=== PATIENT | male | born 1950 | race Caucasian/White ===

== ENCOUNTER 2016-06-19 15:50 | Inpatient (IN) | payer MEDICARE ==
[~2016-06-19] VITALS: Ht 175.3 cm; Wt 102.0 kg
[~2016-06-19 15:50] MED LIST: AMOX/K CLAV875 M1 PO; ASPIRIN81 MG PO; CEPHALEXIN500 MG OR; CIPRO500 MG OR; COUMADIN2.5 MG; COUMADIN2.5 MG PO; COUMADIN5 MG; COUMADIN5 MG OR; COUMADIN7.5 MG OR; DILTIAZEM240 MG PO; DOXYCYC MONO100 M2 PO; FLEXERIL OR; HEPARIN10 UNITS/M IV; INVANZ1 GM IV; LEVAQUIN500 MG OR; METOPROL TAR25 MG PO; NO HOME MEDS; NO MEDS; NORCO1 TA1 PO; NORMAL SALIN0.91 IV; PERCOCET1 TA1 OR; PYRIDIUM100 MG OR; PYRIDIUM200 MG OR; TRAMADOL HCL50 MG OR; ULTRAM50 M1 OR; ULTRAM50 M1 PO; ZOFRAN4 MG OR
--- NOTE | 2016-06-19 16:08 | NUR ---
PT TO WAITING ROOM TO AWAIT AVAILABLE TX ROOM
--- NOTE | 2016-06-19 17:00 | NUR ---
PT TO ROOM 5. TEMP RECHECK 100.8. PT REPORTS FEVER AND BODY ACHES X 4 HOURS. TYLENOL GIVEN IN TRIAGE. PT LS CLEAR, DENIES AND OTHER PAIN OR SYMPTOMS. INFORMED OF PENDING LAB RESULTS AND BUSY ED. PT AND VERBLAIZED UNDERSTANDING WITH NO QUESTIONS VOICED.
[2016-06-19 17:03] LABS: INFLUENZA A NONE DETECTED (NONE DETECT); INFLUENZA B NONE DETECTED (NONE DETECT)
--- NOTE | 2016-06-19 17:33 | NUR ---
PT GIVEN A CATH KIT TO STRAIGHT CATH SELF FOR URINE SPECIMEN.
--- NOTE | 2016-06-19 17:56 | NUR ---
URINE SAMPLE RECIEVED FROM PT. URINE DARK YELLOW AND CLOUDY. PT REPORTS HE HAS A HX OF E COLI AND IS NORMALLY TREATED WITH CIPRO. NOTIFIED.
[2016-06-19 18:16] LABS: URINE BILIRUBIN - DIPSTICK NEGATIVE (NEGATIVE); URINE BLOOD DIPSTICK MODERATE (NEGATIVE); URINE COLOR YELLOW; URINE GLUCOSE - DIPSTICK NEGATIVE (NEGATIVE); URINE KETONE NEGATIVE (NEGATIVE); URINE PH 5.5 (4.5-8.0); URINE PROTEIN - DIPSTICK NEGATIVE (NEG-TRACE); URINE SPECIFIC GRAVITY 1.015; URINE UROBILINOGEN - DIPSTICK 0.2 E.U./dL (0.2)
[2016-06-19 18:23] LABS: URINE CLARITY CLOUDY; URINE LEUK ESTERASE LARGE (NEGATIVE); URINE NITRITE - DIPSTICK POSITIVE (Negative)
[2016-06-19 18:30] LABS: URINE BACTERIA MANY hpf; URINE RBC TNTC RBC/hpf (0-5); URINE SQUAMOUS EPITHELIAL CELL FEW EPI/hpf (0-FEW); URINE WBC TNTC WBC/hpf (0-5)
--- NOTE | 2016-06-19 18:45 | NUR ---
TEMP RECHECK 99.9
--- NOTE | 2016-06-19 19:00 | NUR ---
IV ROCEPHIN RUNNING AT 100 MLS/HR WITH NO DIFFICULTY. PT HAS NO NEEDS AT THIS TIME WILL CONTINUE TO MONITOR. VSS.
[2016-06-19 19:18] LABS: HEMATOCRIT 47.3 % (39.0-50.0); HEMOGLOBIN 15.6 g/dl (14.0-18.0); IMMATURE GRANULOCYTES 0.5 % (0.0-1.0); MEAN CELL VOLUME 83.7 fL CALC (80.0-100.0); MEAN CORPUSCULAR HGB 27.6 pG CALC (26.0-32.0); NEUT# 12.75 thou/uL (1.82-7.42); RED BLOOD COUNT 5.65 mill/uL (4.70-6.10)
[2016-06-19 19:23] LABS: INTERNATIONAL NORMALIZED RATIO 2.9 RATIO (0.7-1.3); PROTHROMBIN TIME 33.7 SECONDS (9.0-12.5)
[2016-06-19 19:24] LABS: ALBUMIN 3.9 g/dL (3.2-5.0); ALKALINE PHOSPHATASE 66 u/l (38-126); ANION GAP 13 (6-22 (CALC)); BILIRUBIN, TOTAL 0.8 mg/dL (0.0-1.4); BUN 17 mg/dL (8-23); BUN/CREATININE RATIO 16 (12-20 (CALC)); CALCIUM 9.1 mg/dL (8.4-10.2); CARBON DIOXIDE 27 mmol/l (22-30); CHLORIDE 103 mmol/l (95-108); CREATININE 1.1 mg/dL (0.7-1.3); GFR > 60 ML/MIN (>=60 (CALC)); GFR FOR AFR.AMER. > 60 ML/MIN (>=60 (CALC)); GLUCOSE 92 mg/dL (82-115); POTASSIUM 4.3 mmol/l (3.5-5.1); SGOT/AST 24 u/l (19-48); SGPT/ALT 28 u/l (11-66); SODIUM 139 mmol/l (137-146); TOTAL PROTEIN 7.7 g/dL (6.3-8.2)
--- NOTE | 2016-06-19 20:00 | NUR ---
AT BEDSIDE TO DISCUSS ADMISSION WITH PT.
--- NOTE | 2016-06-19 20:30 | NUR ---
IV FLUIDS RUNNING AT 999 MLS/HR. PT TOLERATING WELL. NO REDNESS OR EDEMA NOTED TO THE IV SITE. TEMP RECHECK 99.9. CALL [facility] WITHIN REACH. WILL CONTINUE TO MONITOR.
--- NOTE | 2016-06-19 21:10 | NUR ---
PT REPORTING HE IS FEELING COLD, TEMP RECHECK 100.1. NOTIFIED.
--- NOTE | 2016-06-19 21:30 | NUR ---
REPORT GIVEN TO XENA GONZALEZ.
[2016-06-19 21:35] VITALS: BP 142/81
--- NOTE | 2016-06-19 21:43 | NUR ---
Admission Note Report Given to: XENA GONZALEZ Transported by: Wheelchair X Stretcher Transported with: X Nurse Transporter X Patent IV O2 X Unit Aide PT TRANSFERED TO ROOM 263 IN STABLE CONDITION WITH A PATENT IV. PT MEDICATED WITH 650 MG OF TYLENOL FOR TEMP OF 100.1.
--- NOTE | 2016-06-19 22:05 | NUR ---
PT RECEIVED FROM ER VIA STRETCHER ACCOMPANIED BY ER NURSE, AMBULATING TO STANDING SCALE THEN TO BED WITH STEADY GAIT, A/O X3, RESPIRATIONS EVEN AND UNLABORED. ADMITS TO BODY ACHES 5/10 AT THIS TIME. ORIENTED TO BED CONTROLS AND CALL LIGHT FOR ASSISTANCE, WILL CONTINUE TO MONITOR.
[2016-06-19 23:35] VITALS: BP 124/80
--- NOTE | 2016-06-20 | NUR ---
PT REQUESTING SUPPLIES FOR SELF CATHING, PROVIDED WITH SUPPLIES AND INSTRUCTED ON CLEAN TECHNIQUE "PT STATES WADE DONE THIS FOR 20YRS I THINK I KNOW WHAT IM DOING" 375ML OF DARK YELLOW URINE EMPTIED INTO URINAL.
[2016-06-20 03:40] VITALS: BP 150/80
--- NOTE | 2016-06-20 04:00 | NUR ---
C/O NAUSEA AND VOMITING APROX 50ML OF YELLOW EMESIS, ASSISTED WITH ORAL CARE, STATES "I GET NAUSEOUS IN THE MORNINGS SOMETIMES" IV FLUIDS INFUSING TO LAC WITH NO COMPLICATIONS.
[2016-06-20 07:45] VITALS: BP 152/86
--- NOTE | 2016-06-20 08:00 | NUR ---
PT REQUESTING SUPPLIES TO SELF CATH; OFFERED TO ASSIST PT; PT STATES HIS WILL BE IN AND HE CAN HANDLE IT; CALL [facility] WITHIN REACH; WILL CONTINUE TO MONITOR.
--- NOTE | 2016-06-20 10:20 | NUR ---
PT WITH APPROX 75 ML OF YELLOW EMESIS; WASH CLOTH PROVIDED; MD NOTIFIED; PT MEDICATED ORDERED
--- NOTE | 2016-06-20 10:54 | NUR ---
DR. FRIEDMAN IN TO SEE PT; PLAN OF CARE DISCUSSED
[2016-06-20 10:58] LABS: HEMATOCRIT 46.1 % (39.0-50.0); HEMOGLOBIN 15.3 g/dl (14.0-18.0); IMMATURE GRANULOCYTES 0.3 % (0.0-1.0); MEAN CELL VOLUME 84.3 fL CALC (80.0-100.0); MEAN CORPUSCULAR HGB CONC 33.2 g/L CALC (32.0-36.0); NEUT# 10.53 thou/uL (1.82-7.42); RED BLOOD COUNT 5.47 mill/uL (4.70-6.10); RED CELL DISTRI WIDTH 14.2 % (11.5-15.5)
[2016-06-20 11:00] VITALS: BP 149/97
[2016-06-20 11:15] LABS: ANION GAP 12 (6-22 (CALC)); BUN 14 mg/dL (8-23); BUN/CREATININE RATIO 14 (12-20 (CALC)); CALCIUM 8.4 mg/dL (8.4-10.2); CARBON DIOXIDE 27 mmol/l (22-30); CHLORIDE 104 mmol/l (95-108); GFR > 60 ML/MIN (>=60 (CALC)); GFR FOR AFR.AMER. > 60 ML/MIN (>=60 (CALC)); GLUCOSE 96 mg/dL (82-115); POTASSIUM 4.4 mmol/l (3.5-5.1); SODIUM 139 mmol/l (137-146)
--- NOTE | 2016-06-20 14:30 | NUR ---
PT IN HIGH PATEL'S POSITION; NO COMPLAINTS VOICED; IVF INFUSING WITHOUT DIFFICULTY; CALL GOETZ WITHIN REACH; WILL CONTINUE TO MONITOR.
[2016-06-20 14:41] VITALS: BP 136/90
[2016-06-20 18:52] VITALS: BP 139/80
--- NOTE | 2016-06-20 19:30 | NUR ---
PT RESTING WITH EYES CLOSED AND SNORING, RESPONDS EASILY TO VERBAL COMMAND. A/O X3 ADMITS TO BODY ACHING LESS THAN WHEN ADMITTED, DENIES NEED FOR PAIN MEDS. IV FLUIDS INFUSING TO LAC WITH NO COMPLICATIONS. CALL LIGHT IN REACH.
[2016-06-20 23:20] VITALS: BP 124/79
--- NOTE | 2016-06-21 00:37 | NUR ---
PT RESTING ON RIGHT SIDE WITH EYES CLOSED, RESPIRATIONS EVEN AND UNLABORED.
[2016-06-21 03:38] VITALS: BP 122/84
--- NOTE | 2016-06-21 04:15 | NUR ---
MONING BLOOD WORK DRAWN BY [employer] AT THIS TIME, TOLERATED WELL.
[2016-06-21 04:54] LABS: HEMATOCRIT 46.3 % (39.0-50.0); HEMOGLOBIN 15.1 g/dl (14.0-18.0); IMMATURE GRANULOCYTES 0.7 % (0.0-1.0); MEAN CORPUSCULAR HGB 27.7 pG CALC (26.0-32.0); MEAN CORPUSCULAR HGB CONC 32.6 g/L CALC (32.0-36.0); NEUT# 7.16 thou/uL (1.82-7.42); RED BLOOD COUNT 5.45 mill/uL (4.70-6.10); RED CELL DISTRI WIDTH 14.3 % (11.5-15.5)
[2016-06-21 05:12] LABS: INTERNATIONAL NORMALIZED RATIO 2.5 RATIO (0.7-1.3); PROTHROMBIN TIME 29.5 SECONDS (9.0-12.5)
[2016-06-21 05:16] LABS: ANION GAP 11 (6-22 (CALC)); BUN 12 mg/dL (8-23); BUN/CREATININE RATIO 12 (12-20 (CALC)); CALCIUM 8.1 mg/dL (8.4-10.2); CARBON DIOXIDE 27 mmol/l (22-30); CHLORIDE 105 mmol/l (95-108); CREATININE 0.9 mg/dL (0.7-1.3); GFR > 60 ML/MIN (>=60 (CALC)); GFR FOR AFR.AMER. > 60 ML/MIN (>=60 (CALC)); GLUCOSE 96 mg/dL (82-115); POTASSIUM 4.1 mmol/l (3.5-5.1); SODIUM 139 mmol/l (137-146)
--- NOTE | 2016-06-21 07:59 | NUR ---
DR. MACIEL IN TO SEE PT; PLAN OF CARE DISCUSSED
--- NOTE | 2016-06-21 08:07 | NUR ---
IN TO START IV FOR PATIENT REQUESTED BY PTS PRIMARY NURSE. PT EXTREMELY AGITATED. REFUSED IV AT THIS TIME. REPORTS TELE LEAD HAS BEEN "OFF FOR TWO DAYS" OFFERED TO FIX LEAD PT STATES "NO, I DONT KNOW IF I AM STAYING HERE" STATES HE WOULD LIKE TO GO TO [facility]"
--- NOTE | 2016-06-21 08:20 | NUR ---
PT STATES "WHAT DO I NEED TO DO TO GET OUT OF HERE" EXPLAIN TO PT HIS DX AND THE NEED FOR FURTHER ANTIBIOTICS; DR MACIEL IN TO SEE PT; ATTEMPTED TO EXPLAIN RISK OF LEAVING INCLUDING IF INFECTION IS NOT TREATED PROPERLY; PT UPSET STATES THAT HIS HEART MONITOR HAS BEEN OFF SINCE YESTERDAY. "WHEN I WAS AT [facility] THEY CAME IN THE ROOM WITH A CRASH CART WHEN MY MONITOR GOT DISCONNECTED." SHOWED PT MOST RECENT TELE READINGS AND THAT HIS HEART MONITOR IS UNDER CONSTANT MONITORING; PT STATES HE DOESN'T CARE AND IS HAVING HIS SON COME TAKE HIM HOME;
--- NOTE | 2016-06-21 08:29 | NUR ---
Patient decides to leave AMA. Multiple attempts made to ecourage patient to remain here for continued treatment. Explained to patient all risks of leaving against medical advice including . Pt verbalized understanding of all risks. Pt also encouraged to return to [facility] at any time, especially if symptoms continue or become worse. Pt verbalized understanding.
--- NOTE | 2016-06-21 08:30 | NUR ---
PT AMBULATORY OFF UNIT
== END 2016-06-21 08:23 | disposition left against medical advice (07) | DRG 699 ==
LOC: ED 15:50 → ED-I 19:35 → ED 20:02 → MS2 20:03
PROVIDERS: Emergency Medicine; ADMIT Internal Medicine; ATTEND Internal Medicine
DX: T83.518A Infection and inflammatory reaction due to other urinary catheter, initial encounter (principal); N39.0 Urinary tract infection, site not specified; I48.91 Unspecified atrial fibrillation; I10 Essential (primary) hypertension; R33.9 Retention of urine, unspecified; B96.20 Unspecified Escherichia coli [E. coli] as the cause of diseases classified elsewhere; Y84.6 Urinary catheterization as the cause of abnormal reaction of the patient, or of later complication, without mention of misadventure at the time of the procedure; Z16.12 Extended spectrum beta lactamase (ESBL) resistance; Z87.440 Personal history of urinary (tract) infections; Z86.718 Personal history of other venous thrombosis and embolism
CPT/HCPCS: G0378; J1335

== ENCOUNTER 2017-08-24 18:24 | Emergency (ER) | payer MEDICARE ==
[~2017-08-24] VITALS: Ht 175.3 cm; Wt 101.0 kg
[2017-08-24 20:29] LABS: HEMATOCRIT 50.1 % (39.0-50.0); HEMOGLOBIN 16.3 g/dl (14.0-18.0); IMMATURE GRANULOCYTES 0.5 % (0.0-1.0); MEAN CELL VOLUME 86.8 fL CALC (80.0-100.0); MEAN CORPUSCULAR HGB 28.2 pG CALC (26.0-32.0); MEAN CORPUSCULAR HGB CONC 32.5 g/L CALC (32.0-36.0); NEUT# 11.92 thou/uL (1.82-7.42); RED BLOOD COUNT 5.77 mill/uL (4.70-6.10)
[2017-08-24 20:46] LABS: ALKALINE PHOSPHATASE 77 u/l (38-126); ANION GAP 14 (6-22 (CALC)); BILIRUBIN, TOTAL 1.1 mg/dL (0.0-1.4); BUN 18 mg/dL (8-23); BUN/CREATININE RATIO 14 (12-20 (CALC)); CARBON DIOXIDE 24 mmol/l (22-30); CHLORIDE 104 mmol/l (95-108); CREATININE 1.3 mg/dL (0.7-1.3); GFR 55 ML/MIN (>=60 (CALC)); GFR FOR AFR.AMER. > 60 ML/MIN (>=60 (CALC)); POTASSIUM 4.6 mmol/l (3.5-5.1); SGOT/AST 27 u/l (19-48); SGPT/ALT 33 u/l (11-66); SODIUM 137 mmol/l (137-146); TOTAL PROTEIN 8.2 g/dL (6.3-8.2)
[2017-08-24 21:33] LABS: URINE BILIRUBIN - DIPSTICK NEGATIVE (NEGATIVE); URINE BLOOD DIPSTICK MODERATE (NEGATIVE); URINE COLOR YELLOW; URINE GLUCOSE - DIPSTICK NEGATIVE (NEGATIVE); URINE KETONE NEGATIVE (NEGATIVE); URINE NITRITE - DIPSTICK NEGATIVE (Negative); URINE PROTEIN - DIPSTICK TRACE mg/dL (NEG-TRACE); URINE UROBILINOGEN - DIPSTICK 0.2 E.U./dL (0.2)
[2017-08-24 21:34] LABS: URINE CLARITY CLOUDY; URINE LEUK ESTERASE LARGE (NEGATIVE)
[2017-08-24] MEDS ORDERED: CIPROFLOXACN500 MG PO (21:38)
[2017-08-24 21:44] LABS: URINE BACTERIA MANY hpf; URINE WBC 20-50 WBC/hpf (0-5)
[2017-08-24 22:16] VITALS: BP 118/60
== END 2017-08-24 22:16 | disposition home or self-care (01) ==
LOC: ED 18:24
PROVIDERS: Emergency Medicine
DX: N39.0 Urinary tract infection, site not specified (principal); R33.9 Retention of urine, unspecified; I10 Essential (primary) hypertension; I48.91 Unspecified atrial fibrillation; B96.20 Unspecified Escherichia coli [E. coli] as the cause of diseases classified elsewhere; Z16.12 Extended spectrum beta lactamase (ESBL) resistance; Z86.718 Personal history of other venous thrombosis and embolism; Z79.01 Long term (current) use of anticoagulants; Z87.440 Personal history of urinary (tract) infections

== ENCOUNTER 2018-05-09 02:04 | Emergency (ER) | payer MEDICARE ==
[~2018-05-09] VITALS: Ht 175.3 cm; Wt 100.4 kg
[~2018-05-09 02:04] MED LIST changes: +CIPROFLOXACN500 MG PO
[2018-05-09] MEDS ORDERED: BACTRIM DS1 TAB PO ×2 (02:46→19:39)
[2018-05-09] MEDS ORDERED: CEPHALEXIN500 M1 PO (02:47)
[2018-05-09 02:55] VITALS: BP 158/90
== END 2018-05-09 03:00 | disposition home or self-care (01) ==
LOC: ED 02:04
PROC: 0H9EXZZ Drainage of Left Lower Arm Skin, External Approach (ICD-10-PCS; principal; 2018-05-09)
DX: L02.414 Cutaneous abscess of left upper limb (principal); B95.62 Methicillin resistant Staphylococcus aureus infection as the cause of diseases classified elsewhere; Z48.01 Encounter for change or removal of surgical wound dressing

== ENCOUNTER 2018-05-09 19:13 | Emergency (ER) | payer MEDICARE ==
[~2018-05-09] VITALS: Ht 175.3 cm; Wt 100.4 kg
[~2018-05-09 19:13] MED LIST changes: +BACTRIM DS1 TAB PO; +CEPHALEXIN500 M1 PO
[2018-05-09 19:36] VITALS: BP 112/80
[2018-05-09] MEDS ORDERED: BACTRIM DS1 TAB PO (19:39)
== END 2018-05-09 19:37 | disposition home or self-care (01) ==
LOC: ED 19:13
DX: Z48.01 Encounter for change or removal of surgical wound dressing (principal)

== ENCOUNTER 2018-05-11 08:57 | Emergency (ER) | payer MEDICARE ==
[~2018-05-11] VITALS: Ht 175.3 cm; Wt 80.0 kg
[2018-05-11 10:07] VITALS: BP 133/79
== END 2018-05-11 10:07 | disposition home or self-care (01) ==
LOC: ED 08:57
DX: Z48.01 Encounter for change or removal of surgical wound dressing (principal); I48.91 Unspecified atrial fibrillation; I10 Essential (primary) hypertension

== ENCOUNTER 2019-12-22 16:01 | Emergency (ER) | payer MEDICARE ==
[~2019-12-22] VITALS: Ht 175.3 cm; Wt 81.0 kg
[2019-12-22] MEDS ORDERED: CIPROFLOXACN500 MG PO (16:19)
[2019-12-22 16:34] LABS: HEMATOCRIT 50.5 % (39.0-50.0); IMMATURE GRANULOCYTES 0.8 % (0.0-5.0); MEAN CELL VOLUME 87.2 fL CALC (80.0-100.0); MEAN CORPUSCULAR HGB 27.6 pG CALC (26.0-32.0); MEAN CORPUSCULAR HGB CONC 31.7 g/dL CAL (32.0-36.0); NEUT# 2.49 thou/uL (1.82-7.42); RED BLOOD COUNT 5.79 mill/uL (4.70-6.10)
[2019-12-22 16:46] LABS: ALBUMIN 4.1 g/dL (3.2-5.0); ALKALINE PHOSPHATASE 70 u/l (38-126); ANION GAP 12 (6-22 (CALC)); BILIRUBIN, TOTAL 0.4 mg/dL (0.0-1.4); BUN 14 mg/dL (8-23); BUN/CREATININE RATIO 13 (12-20 (CALC)); CARBON DIOXIDE 24 mmol/l (22-30); CHLORIDE 105 mmol/l (95-108); GFR > 60 ML/MIN (>=60 (CALC)); GFR FOR AFR.AMER. > 60 ML/MIN (>=60 (CALC)); POTASSIUM 4.2 mmol/l (3.5-5.1); SGOT/AST 31 u/l (19-48); SODIUM 137 mmol/l (137-146); TOTAL PROTEIN 7.8 g/dL (6.3-8.2)
[2019-12-22] MEDS ORDERED: MEDDOSEPAK PO ×2 (17:47)
[2019-12-22] MEDS ORDERED: CEPHALEXIN500 MG PO (17:47)
[2019-12-22 17:52] VITALS: BP 124/80
== END 2019-12-22 17:52 | disposition home or self-care (01) ==
LOC: ED 16:01
PROVIDERS: Emergency Medicine
DX: J06.9 Acute upper respiratory infection, unspecified (principal); I10 Essential (primary) hypertension; I48.91 Unspecified atrial fibrillation

== ENCOUNTER 2019-12-29 17:44 | Emergency (ER) | payer MEDICARE ==
[~2019-12-29] VITALS: Ht 175.3 cm; Wt 100.0 kg
[~2019-12-29 17:44] MED LIST changes: +CEPHALEXIN500 MG PO; +MEDDOSEPAK PO
[2019-12-29 18:39] LABS: HEMATOCRIT 53.5 % (39.0-50.0); HEMOGLOBIN 17.3 g/dl (14.0-18.0); IMMATURE GRANULOCYTES 0.5 % (0.0-5.0); MEAN CELL VOLUME 85.2 fL CALC (80.0-100.0); MEAN CORPUSCULAR HGB 27.5 pG CALC (26.0-32.0); MEAN CORPUSCULAR HGB CONC 32.3 g/dL CAL (32.0-36.0); NEUT# 8.01 thou/uL (1.82-7.42); RED BLOOD COUNT 6.28 mill/uL (4.70-6.10); RED CELL DISTRI WIDTH 13.6 % (11.5-15.5)
[2019-12-29 19:02] LABS: D-DIMER 0.59 mg/L (0.19-0.60)
[2019-12-29 19:05] LABS: ALBUMIN 4.1 g/dL (3.2-5.0); ALKALINE PHOSPHATASE 74 u/l (38-126); AMYLASE 147 u/l (30-110); ANION GAP 15 (6-22 (CALC)); CARBON DIOXIDE 26 mmol/l (22-30); CHLORIDE 100 mmol/l (95-108); CREATININE 1.4 mg/dL (0.7-1.3); GFR 50 ML/MIN (>=60 (CALC)); GFR FOR AFR.AMER. > 60 ML/MIN (>=60 (CALC)); LIPASE 214 u/l (23-300); POTASSIUM 3.8 mmol/l (3.5-5.1); SGOT/AST 42 u/l (19-48); SODIUM 136 mmol/l (137-146); TOTAL PROTEIN 8.3 g/dL (6.3-8.2)
[2019-12-29 19:10] LABS: BILIRUBIN, TOTAL 0.9 mg/dL (0.0-1.4); BUN 43 mg/dL (8-23); BUN/CREATININE RATIO 31 (12-20 (CALC)); INTERNATIONAL NORMALIZED RATIO 1.9 RATIO (0.7-1.3)
[2019-12-29 19:20] LABS: PROTHROMBIN TIME 18.5 SECONDS (9.0-12.5)
[2019-12-29 20:45] VITALS: BP 132/74
== END 2019-12-29 20:45 ==
LOC: ED 17:44
DX: U07.1 COVID-19 (principal); R11.2 Nausea with vomiting, unspecified; R19.7 Diarrhea, unspecified; I21.4 Non-ST elevation (NSTEMI) myocardial infarction; I10 Essential (primary) hypertension; I48.91 Unspecified atrial fibrillation
CPT/HCPCS: J0131